=== PATIENT | male | born 1950 | race Caucasian/White ===

== ENCOUNTER 2023-01-19 17:04 | Emergency (ER) | payer OTHER ==
[2023-01-19 17:19] VITALS: BMI 26.9
[2023-01-19 20:31] LABS: BASO % 0.4 % (0-2.0); EOS % 0.4 % (0-4.5); HEMATOCRIT 41.3 % (35.4-49); LYMPH % 14.5 % (8-40); MEAN CELL VOLUME 82.4 fl (80-96); MEAN PLT VOLUME 7.3 fl (7.5-11.1); MONO % 9.9 % (3.8-10.2); NEUT % 74.8 % (42.8-82.8); PLATELET COUNT 272 10^3/uL (134-434); RBC 5.01 M/mm3 (4.00-5.60); RDW 14.3 % (11.9-15.9); WHITE BLOOD COUNT 14.5 K/mm3 (4.0-10.0)
[2023-01-19 21:04] LABS: ALBUMIN 3.8 g/dl (3.4-5.0); BLOOD UREA NITROGEN 15.4 mg/dL (7-18); CALCIUM 9.2 mg/dL (8.5-10.1)
[2023-01-19 21:07] LABS: CREATININE 0.9 mg/dL (0.55-1.3)
[2023-01-19 21:09] LABS: BILIRUBIN,TOTAL 0.8 mg/dL (0.2-1)
[2023-01-19 21:10] LABS: TOT PROT 7.3 g/dl (6.4-8.2)
[2023-01-19 22:13] LABS: EPI CELLS 2 /uL (0-25.1); HYALINE CASTS 0 /uL (0-3.1); URINE APPEARANCE CLEAR; URINE BACTERIA 1 /uL (0-1359); URINE BILIRUBIN NEGATIVE (NEGATIVE); URINE COLOR YELLOW; URINE GLUCOSE (UA) NEGATIVE (NEGATIVE); URINE KETONE NEGATIVE (NEGATIVE); URINE LEUK ESTERASE NEGATIVE (NEGATIVE); URINE NITRITE NEGATIVE (NEGATIVE); URINE PROTEIN NEGATIVE (NEGATIVE); URINE RBC 31 /uL (0-23.9); URINE UROBILINOGEN 0.2 mg/dL (0.2-1.0); URINE WBC 3 /uL (0-25.8)
[2023-01-20 00:48] VITALS: BP 100/56; PULSE 56; RESP 18; TEMP 99
[2023-01-20] MEDS ORDERED: POLYETHYLENE GLYCOL 3350 255 GM BTL PO ONE (00:49)
[2023-01-20] MEDS ORDERED: POLYETHYLENE GLYCOL (HEALTHYLAX) 3350 17 GM PACKET ONE (01:12)
== END 2023-01-20 02:09 | disposition home or self-care (01) ==
LOC: JER 17:04 → JERFT 17:04 → JER 01-20 02:09
DX: R10.30 Lower abdominal pain, unspecified (principal)
CPT/HCPCS: 36415; 74177-TC; 80053; 81003; 83605; 83690; 85025; 87086; 93005; 93010; 99285-25; Q9967

== ENCOUNTER 2024-06-27 15:48 | Emergency (ER) | payer OTHER ==
[2024-06-27 15:55] VITALS: BP 119/74; PULSE 60; RESP 18; TEMP 97.7; BMI 23.3
== END 2024-06-27 20:09 | disposition home or self-care (01) ==
LOC: JERFT 15:48
DX: J40 Bronchitis, not specified as acute or chronic (principal); R05.9 Cough, unspecified; R09.89 Other specified symptoms and signs involving the circulatory and respiratory systems
CPT/HCPCS: 71046-TC-FY; 99283-25

== ENCOUNTER 2024-12-12 10:09 | Emergency (ER) | payer OTHER ==
[2024-12-12 10:23] VITALS: BP 141/75; PULSE 64; RESP 18; TEMP 97.9; BMI 28.3
== END 2024-12-12 12:04 | disposition home or self-care (01) ==
LOC: JER 10:09
DX: K40.90 Unilateral inguinal hernia, without obstruction or gangrene, not specified as recurrent (principal)
CPT/HCPCS: 99283-25

== ENCOUNTER 2025-02-08 05:21 | Day surgery (SDC) | payer OTHER ==
[2025-01-15 11:42] VITALS: BMI 24.9
[2025-02-08] MEDS ORDERED: BUPIVACAINE HCL/PF 0.25% (2.5MG/ML) 10 ML VIAL ONE (07:24)
[2025-02-08] MEDS ORDERED: PROPOFOL 20 ML ONE (07:58)
[2025-02-08] MEDS ORDERED: LIDOCAINE HCL 2% 100 MG/5 ML DISP.SYRIN ONE (07:58)
[2025-02-08] MEDS ORDERED: ROCURONIUM BROMIDE 50 MG/5 ML SYRINGE ONE ×2 (07:58→09:44)
[2025-02-08] MEDS: ceFAZolin 2 GRAM PREMIX BAG IVPB ONE (08:08)
[2025-02-08] MEDS ORDERED: GLYCOPYRROLATE 0.2 MG/1 ML VIAL ONE (08:36)
[2025-02-08] MEDS ORDERED: SUGAMMADEX SODIUM 200 MG/2 ML VIAL ONE (08:44)
[2025-02-08] MEDS: BUPIVACAINE HCL/PF 0.25% (2.5MG/ML) 10 ML VIAL IJ ONE ×2 (08:47)
[2025-02-08] MEDS ORDERED: ONDANSETRON 4 MG/2 ML VIAL IVPUSH PRN (08:53)
[2025-02-08] MEDS ORDERED: ACETAMINOPHEN 1000 MG/100 ML BAG IVPB ONE (08:56)
[2025-02-08] MEDS ORDERED: LACTATED RINGERS SOLUTION 1,000 ML IV SCH (09:00)
[2025-02-08 13:33] VITALS: RESP 18
[2025-02-08 13:38] VITALS: TEMP 98
[2025-02-08 15:15] VITALS: BP 124/69; PULSE 74
== END 2025-02-08 15:50 | disposition home or self-care (01) ==
LOC: JASU-SURG 05:21
PROVIDERS: ATTEND Surgery
PROC: 0DQV4ZZ Repair Mesentery, Percutaneous Endoscopic Approach (ICD-10-PCS; principal; 2025-02-08 08:00)
DX: K40.90 Unilateral inguinal hernia, without obstruction or gangrene, not specified as recurrent (principal)
CPT/HCPCS: 49650; S2900; 88304-TC; 94760; C1781